=== PATIENT | female | born 1975 | race Caucasian/White ===

== ENCOUNTER → 2020-04-14 | Outpatient (CLI) | payer SELFPAY ==
[~2020-04-14] MED LIST: ALBUTEROL0.09 MG/A2 INH; ASPIRIN CHEWABL81 MG PO; CELEXA40 MG PO; CLINDAMYCIN HC300 MG PO; COUMADIN5 M2 PO; PLAVIX75 M1 PO; SYNTHROID,LEV125 MCG PO; VISTARIL25 MG PO
== END | disposition home or self-care (01) ==
LOC: COVID19 08:14
PROVIDERS: ATTEND Internal Medicine
DX: Z20.828 Contact with and (suspected) exposure to other viral communicable diseases (principal)

== ENCOUNTER 2020-08-23 23:22 | Emergency (ER) | payer SELFPAY ==
[~2020-08-23] VITALS: Ht 172.7 cm; Wt 113.4 kg
[2020-08-25] MEDS ORDERED: LISINOPRIL10 M1 PO (20:57)
[2020-08-25] MEDS ORDERED: SIMVASTATIN40 MG PO (20:57)
[2020-08-25] MEDS ORDERED: CHLORTHALIDONE25 MG PO (20:58)
== END 2020-08-24 01:50 | disposition home or self-care (01) ==
LOC: ED 23:22
DX: I95.1 Orthostatic hypotension (principal); Z88.8 Allergy status to other drugs, medicaments and biological substances; Z79.899 Other long term (current) drug therapy; Z79.82 Long term (current) use of aspirin; Z98.890 Other specified postprocedural states

== ENCOUNTER 2020-08-25 17:22 | Observation (INO) | payer SELFPAY ==
[~2020-08-25] VITALS: Ht 152.4 cm; Wt 115.0 kg
[2020-08-25 17:28] VITALS: BP 151/97
[2020-08-25 18:00] LABS: BASO # 0.1 10*3/uL (0.0-0.1); BASO % 0.6 % (0.0-1.0); EOS # 0.1 10*3/uL (0.0-0.4); EOS % 0.6 % (1.0-4.0); HEMATOCRIT 45.8 % (37.0-47.0); LYMPH # 2.5 10*3/uL (1.3-4.4); MEAN CORPUSCULAR HGB 33.4 pg (27.0-31.0); MEAN CORPUSCULAR HGB CONC 35.2 g/dl (33.0-37.0); MEAN PLATELET VOLUME 9.3 fl (9.6-12.3); MONO # 1.2 10*3/uL (0.1-1.0); MONO % 7.9 % (3.0-9.0); NEUT # 11.5 10*3/uL (2.3-7.9); NEUT % 73.7 % (47.0-73.0); PLATELET COUNT AUTOMATED 344 10*3/uL (130-400); RED BLOOD COUNT 4.82 10*6/uL (4.10-5.10); RED CELL DISTRI WIDTH 12.3 % (0-14.5); WHITE BLOOD COUNT 15.5 10*3/uL (4.8-10.8)
[2020-08-25 18:16] LABS: ACT PARTIAL THROMBO TIME 28.1 SECONDS (20.0-32.1)
[2020-08-25 18:23] LABS: ALBUMIN 3.7 gm/dl (3.1-4.5); ALKALINE PHOSPHATASE 66 U/L (45-117); BUN 8 mg/dl (7-24); CHLORIDE 101 mmol/L (98-107); CREATININE 0.94 mg/dL (0.55-1.02); POTASSIUM 3.6 mmol/L (3.5-5.1); SGOT/AST 8 IU/L (3-35); SGPT/ALT 20 U/L (12-78); SODIUM 135 mmol/L (136-145); TOTAL PROTEIN 7.9 gm/dL (6.4-8.2)
[2020-08-25 18:25] LABS: TROPONIN I < 0.015 ng/ml (<0.045)
[2020-08-25 18:49] LABS: BILIRUBIN Negative (Negative); BLOOD 1+ (Negative); CLARITY Cloudy (Clear); COLOR Yellow (Yellow); GLUCOSE Negative (Negative); KETONE Negative (Negative); LEUKO ESTERASE 1+ (Negative); NITRITE Negative (Negative); UROBILINOGEN 0.2 E.U./dl (0.0-1.0)
[2020-08-25 19:29] VITALS: BP 148/91
[2020-08-25 19:54] LABS: RBC 0-2 rbc/hpf (0-2)
[2020-08-25 19:55] LABS: BACTERIA 1+; YEAST TRACE
[2020-08-25 20:20] VITALS: BP 142/70
[2020-08-25] MEDS ORDERED: LISINOPRIL10 M1 PO (20:57)
[2020-08-25] MEDS ORDERED: SIMVASTATIN40 MG PO (20:57)
[2020-08-25] MEDS ORDERED: CHLORTHALIDONE25 MG PO (20:58)
[2020-08-26] VITALS: BP 145/82
[2020-08-26 06:41] LABS: BASO # 0.1 10*3/uL (0.0-0.1); BASO % 0.5 % (0.0-1.0); EOS # 0.1 10*3/uL (0.0-0.4); EOS % 0.8 % (1.0-4.0); HEMATOCRIT 44.8 % (37.0-47.0); LYMPH # 2.8 10*3/uL (1.3-4.4); LYMPH % 19.4 % (27.0-41.0); MEAN CELL VOLUME 97.4 fl (81.0-99.0); MEAN CORPUSCULAR HGB CONC 33.9 g/dl (33.0-37.0); MEAN PLATELET VOLUME 9.6 fl (9.6-12.3); MONO # 1.2 10*3/uL (0.1-1.0); MONO % 8.4 % (3.0-9.0); NEUT # 9.9 10*3/uL (2.3-7.9); NEUT % 69.6 % (47.0-73.0); PLATELET COUNT AUTOMATED 312 10*3/uL (130-400); RED CELL DISTRI WIDTH 12.4 % (0-14.5); WHITE BLOOD COUNT 14.2 10*3/uL (4.8-10.8)
[2020-08-26 07:26] LABS: BUN 7 mg/dl (7-24); CHLORIDE 101 mmol/L (98-107); CHOLESTEROL 199 mg/dL (<200); CREATININE 0.73 mg/dL (0.55-1.02); POTASSIUM 3.6 mmol/L (3.5-5.1); SODIUM 135 mmol/L (136-145); TRIGLYCERIDES 313 mg/dl (<150); VLDL CHOLESTEROL 63 mg/dL (6-40)
[2020-08-26 07:40] LABS: FREE T4 1.03 ng/dl (0.76-1.46); HDL CHOLESTEROL 30 mg/dl (40-60); LDL CHOLESTEROL 106 mg/dL (9-159)
[2020-08-26 08:00] VITALS: BP 134/77
[2020-08-26 12:00] VITALS: BP 142/78
[2020-08-26] MEDS ORDERED: VITAMIN D350 MC2 GT (13:46)
[2020-08-26] MEDS ORDERED: ATORVASTATIN CA80 M1 PO (13:46)
== END 2020-08-26 14:25 | disposition home or self-care (01) ==
LOC: ED 17:22 → EDHOLD 18:32 → 4E 18:32
PROVIDERS: Emergency Medicine; Internal Medicine; Nurse Practitioner; ADMIT Internal Medicine; ATTEND Internal Medicine
DX: R07.89 Other chest pain (principal); R00.0 Tachycardia, unspecified; E87.1 Hypo-osmolality and hyponatremia; D72.829 Elevated white blood cell count, unspecified; E11.65 Type 2 diabetes mellitus with hyperglycemia; R82.71 Bacteriuria; E66.01 Morbid (severe) obesity due to excess calories; F17.210 Nicotine dependence, cigarettes, uncomplicated; E03.9 Hypothyroidism, unspecified; I10 Essential (primary) hypertension; E78.5 Hyperlipidemia, unspecified; I73.9 Peripheral vascular disease, unspecified; F41.9 Anxiety disorder, unspecified; Z98.890 Other specified postprocedural states; Z98.51 Tubal ligation status

== ENCOUNTER 2020-11-14 16:35 | Emergency (ER) | payer SELFPAY ==
[~2020-11-14] VITALS: Ht 175.2 cm; Wt 113.4 kg
[~2020-11-14 16:35] MED LIST changes: +ATORVASTATIN CA80 M1 PO; +CHLORTHALIDONE25 MG PO; +LISINOPRIL10 M1 PO; +SIMVASTATIN40 MG PO; +VITAMIN D350 MC2 GT
[2020-11-14 17:18] LABS: HEMATOCRIT 41.1 % (37.0-47.0); MEAN CELL VOLUME 92.2 fl (81.0-99.0); MEAN CORPUSCULAR HGB 32.3 pg (27.0-31.0); MEAN PLATELET VOLUME 9.5 fl (9.6-12.3); PLATELET COUNT AUTOMATED 298 10*3/uL (130-400); RED BLOOD COUNT 4.46 10*6/uL (4.10-5.10); RED CELL DISTRI WIDTH 13.3 % (0-14.5); WHITE BLOOD COUNT 13.2 10*3/uL (4.8-10.8)
[2020-11-14 17:36] LABS: ALBUMIN 3.5 gm/dl (3.1-4.5); ALKALINE PHOSPHATASE 48 U/L (45-117); BUN 19 mg/dl (7-24); CHLORIDE 103 mmol/L (98-107); CREATININE 0.74 mg/dL (0.55-1.02); POTASSIUM 2.7 mmol/L (3.5-5.1); SGOT/AST 17 IU/L (3-35); SGPT/ALT 24 U/L (12-78); SODIUM 136 mmol/L (136-145)
[2020-11-14 17:41] LABS: ATYPICAL LYMPHS 1 % (0-0); PLATELET SUFFICIENCY NORMAL (NORMAL); TOTAL CELLS COUNTED 100 #CELLS
[2020-11-14] MEDS ORDERED: LIDEX 0.05% CRE15 GM T (20:15)
== END 2020-11-14 20:17 | disposition home or self-care (01) ==
LOC: ED 16:35
PROVIDERS: Physician Assistant
DX: R21 Rash and other nonspecific skin eruption (principal); E87.6 Hypokalemia; L29.9 Pruritus, unspecified; F17.200 Nicotine dependence, unspecified, uncomplicated; Z88.8 Allergy status to other drugs, medicaments and biological substances; Z79.899 Other long term (current) drug therapy; Z79.82 Long term (current) use of aspirin; Z98.890 Other specified postprocedural states; Z98.51 Tubal ligation status; Z96.22 Myringotomy tube(s) status

== ENCOUNTER 2020-12-24 05:22 | Emergency (ER) | payer SELFPAY ==
[~2020-12-24] VITALS: Ht 167.6 cm; Wt 99.8 kg
[~2020-12-24 05:22] MED LIST changes: +LIDEX 0.05% CRE15 GM T
[2020-12-24 06:03] LABS: BASO # 0.1 10*3/uL (0.0-0.1); BASO % 0.7 % (0.0-1.0); EOS # 0.2 10*3/uL (0.0-0.4); EOS % 1.5 % (1.0-4.0); HEMATOCRIT 44.1 % (37.0-47.0); LYMPH # 2.5 10*3/uL (1.3-4.4); LYMPH % 18.6 % (27.0-41.0); MEAN CELL VOLUME 95.9 fl (81.0-99.0); MEAN CORPUSCULAR HGB CONC 33.3 g/dl (33.0-37.0); MEAN PLATELET VOLUME 9.4 fl (9.6-12.3); MONO % 7.5 % (3.0-9.0); NEUT # 9.2 10*3/uL (2.3-7.9); NEUT % 69.5 % (47.0-73.0); PLATELET COUNT AUTOMATED 297 10*3/uL (130-400); RED CELL DISTRI WIDTH 14.1 % (0-14.5); WHITE BLOOD COUNT 13.2 10*3/uL (4.8-10.8)
[2020-12-24 06:28] LABS: ALBUMIN 3.2 gm/dl (3.1-4.5); ALKALINE PHOSPHATASE 53 U/L (45-117); BUN 13 mg/dl (7-24); CHLORIDE 106 mmol/L (98-107); CREATININE 0.96 mg/dL (0.55-1.02); POTASSIUM 3.3 mmol/L (3.5-5.1); SGOT/AST 12 IU/L (3-35); SGPT/ALT 21 U/L (12-78); SODIUM 139 mmol/L (136-145); TOTAL PROTEIN 6.7 gm/dL (6.4-8.2)
== END 2020-12-24 06:53 | disposition home or self-care (01) ==
LOC: ED 05:22
PROVIDERS: Internal Medicine
DX: B34.9 Viral infection, unspecified (principal); Z20.822 Contact with and (suspected) exposure to COVID-19; E87.6 Hypokalemia; D72.829 Elevated white blood cell count, unspecified; F17.200 Nicotine dependence, unspecified, uncomplicated; Z88.8 Allergy status to other drugs, medicaments and biological substances; Z79.899 Other long term (current) drug therapy; Z79.82 Long term (current) use of aspirin

== ENCOUNTER → 2021-05-12 | Outpatient (CLI) | payer OTHER | LOC: COVID19 15:46 | PROVIDERS: ATTEND Internal Medicine | DX: U07.1 COVID-19 (principal) ==

== ENCOUNTER 2021-07-11 00:56 | Emergency (ER) | payer SELFPAY ==
[~2021-07-11] VITALS: Ht 165.1 cm; Wt 104.3 kg
[2021-07-11] MEDS ORDERED: CLOPIDOGREL75 MG PO (01:05)
[2021-07-11 02:02] LABS: BASO # 0.1 10*3/uL (0.0-0.1); BASO % 0.7 % (0.0-1.0); EOS # 0.3 10*3/uL (0.0-0.4); EOS % 2.4 % (1.0-4.0); HEMATOCRIT 41.8 % (37.0-47.0); LYMPH # 1.7 10*3/uL (1.3-4.4); LYMPH % 15.8 % (27.0-41.0); MEAN CELL VOLUME 93.1 fl (81.0-99.0); MEAN CORPUSCULAR HGB 32.3 pg (27.0-31.0); MEAN CORPUSCULAR HGB CONC 34.7 g/dl (33.0-37.0); MONO % 9.5 % (3.0-9.0); NEUT # 7.6 10*3/uL (2.3-7.9); PLATELET COUNT AUTOMATED 280 10*3/uL (130-400); RED BLOOD COUNT 4.49 10*6/uL (4.10-5.10); RED CELL DISTRI WIDTH 13.3 % (0-14.5); WHITE BLOOD COUNT 10.9 10*3/uL (4.8-10.8)
[2021-07-11 02:18] LABS: ALKALINE PHOSPHATASE 52 U/L (45-117); BUN 16 mg/dl (7-24); CHLORIDE 105 mmol/L (98-107); CREATININE 0.78 mg/dL (0.55-1.02); POTASSIUM 3.5 mmol/L (3.5-5.1); SGOT/AST 16 IU/L (3-35); SGPT/ALT 20 U/L (12-78); SODIUM 137 mmol/L (136-145); TOTAL PROTEIN 7.1 gm/dL (6.4-8.2)
== END 2021-07-11 04:19 | disposition left against medical advice (07) ==
LOC: ED 00:56
PROVIDERS: Emergency Medicine
DX: J45.909 Unspecified asthma, uncomplicated (principal); E66.9 Obesity, unspecified; E03.9 Hypothyroidism, unspecified; I10 Essential (primary) hypertension; E78.5 Hyperlipidemia, unspecified; Z88.8 Allergy status to other drugs, medicaments and biological substances; Z79.899 Other long term (current) drug therapy; Z79.82 Long term (current) use of aspirin; Z98.51 Tubal ligation status; Z98.890 Other specified postprocedural states; Z87.891 Personal history of nicotine dependence

== ENCOUNTER 2021-08-25 13:03 | Emergency (ER) | payer BC ==
[~2021-08-25] VITALS: Ht 165.1 cm; Wt 104.3 kg
[~2021-08-25 13:03] MED LIST changes: +CLOPIDOGREL75 MG PO
[2021-08-25] MEDS ORDERED: AUGMENTIN 875-875 MG PO (13:30)
[2021-08-25] MEDS ORDERED: PREDNISONE50 MG PO (13:30)
== END 2021-08-25 14:15 | disposition home or self-care (01) ==
LOC: ED 13:03
DX: J98.01 Acute bronchospasm (principal); J02.9 Acute pharyngitis, unspecified; H66.91 Otitis media, unspecified, right ear; F17.200 Nicotine dependence, unspecified, uncomplicated; Z88.8 Allergy status to other drugs, medicaments and biological substances; Z79.899 Other long term (current) drug therapy; Z79.82 Long term (current) use of aspirin; Z98.890 Other specified postprocedural states; Z98.51 Tubal ligation status; Z90.89 Acquired absence of other organs

== ENCOUNTER → 2021-08-31 | Outpatient (CLI) | payer BC ==
[~2021-08-31] MED LIST changes: +AUGMENTIN 875-875 MG PO; +PREDNISONE50 MG PO
== END | disposition home or self-care (01) ==
LOC: MAMMO 13:20
PROVIDERS: ATTEND Nurse Practitioner Women's Health
DX: Z12.31 Encounter for screening mammogram for malignant neoplasm of breast (principal); N92.6 Irregular menstruation, unspecified; N85.8 Other specified noninflammatory disorders of uterus

== ENCOUNTER 2022-05-19 20:21 | Emergency (ER) | payer BC ==
[~2022-05-19] VITALS: Ht 167.6 cm
== END 2022-05-19 22:10 | disposition home or self-care (01) ==
LOC: ED 20:21
DX: M79.604 Pain in right leg (principal); I73.9 Peripheral vascular disease, unspecified; F41.9 Anxiety disorder, unspecified; J45.909 Unspecified asthma, uncomplicated; Z88.8 Allergy status to other drugs, medicaments and biological substances; Z98.51 Tubal ligation status; Z98.890 Other specified postprocedural states; F17.200 Nicotine dependence, unspecified, uncomplicated; F12.90 Cannabis use, unspecified, uncomplicated

== ENCOUNTER → 2022-06-23 | Outpatient (CLI) | payer BC | END | disposition home or self-care (01) | LOC: RAD 13:36 | PROVIDERS: ATTEND Nurse Practitioner Family | DX: M25.461 Effusion, right knee (principal) ==

== ENCOUNTER 2022-07-30 17:54 | Emergency (ER) | payer BC ==
[~2022-07-30] VITALS: Ht 167.6 cm; Wt 98.9 kg
[2022-07-30] MEDS ORDERED: TOBRAMYCIN5 ML OP (19:43)
== END 2022-07-30 19:47 | disposition home or self-care (01) ==
LOC: ED 17:54
DX: H10.9 Unspecified conjunctivitis (principal); Z88.8 Allergy status to other drugs, medicaments and biological substances; Z79.899 Other long term (current) drug therapy; Z79.82 Long term (current) use of aspirin; Z98.51 Tubal ligation status; Z98.890 Other specified postprocedural states; Z90.89 Acquired absence of other organs; F17.200 Nicotine dependence, unspecified, uncomplicated

== ENCOUNTER 2022-08-02 22:02 | Emergency (ER) | payer BC ==
[~2022-08-02] VITALS: Wt 97.5 kg
[~2022-08-02 22:02] MED LIST changes: +TOBRAMYCIN5 ML OP
[2022-08-03] MEDS ORDERED: PREDNISONE10 M1 PO (00:42)
[2022-08-03] MEDS ORDERED: ZITHROMAX250 MG PO (00:42)
== END 2022-08-03 00:49 | disposition home or self-care (01) ==
LOC: ED 22:02
DX: J40 Bronchitis, not specified as acute or chronic (principal); J98.01 Acute bronchospasm; I10 Essential (primary) hypertension; E78.5 Hyperlipidemia, unspecified; E03.9 Hypothyroidism, unspecified; E66.9 Obesity, unspecified; F17.210 Nicotine dependence, cigarettes, uncomplicated; Z88.8 Allergy status to other drugs, medicaments and biological substances; Z76.0 Encounter for issue of repeat prescription; Z79.899 Other long term (current) drug therapy; Z79.82 Long term (current) use of aspirin; Z98.51 Tubal ligation status; Z98.890 Other specified postprocedural states; Z90.89 Acquired absence of other organs